=== PATIENT | female | born 1950 | race Caucasian/White ===

== ENCOUNTER 2025-04-25 21:21 | Emergency (ER) | payer OTHER ==
[~2025-04-25] VITALS: Ht 167.6 cm; Wt 78.8 kg
--- NOTE | 2025-04-25 21:49 | ED.PDOC ---
Daniela. trauma (HPI) HPI Comments Pt presents to the ER due to ground level fall. Pt reports she was working out in her yard and tripped and fell over a wooden beam. Pt states bracing fall with lft side of body. Pt complaint of lft hand, wrist, and lft knee pain. Pt noted to have abrasion to lft cheek. Pt denies head, neck, or back pain. CSM intact. Time Seen by MD: 21:39 Reviewed notes: Nurses Notes, Medications, Allergies Allergies: Coded Allergies: NO KNOWN ALLERGIES (Unverified , 04/25/25) Past Medical History PAST MEDICAL HISTORY: Denies Surgical History: Denies all surgeries [employer] History: No Pertinent [employer] History Family History Family History: Reviewed,noncontributory to illness Social History Smoker: Non-Smoker Alcohol: Denies ETOH Use Drugs: Denies Drug Use Constitutional: denies: chills, diaphoresis, fatigue, fever, malaise, sweats, weakness, others EENTM: denies: blurred vision, double vision, ear bleeding, ear discharge, ear drainage, ear pain, ear ringing, eye pain, eye redness, hearing loss, mouth pain, mouth swelling, nasal discharge, nose bleeding, nose congestion, nose pain, photophobia, tearing, throat pain, throat swelling, voice changes, others Respiratory: denies: cough, hemoptysis, orthopnea, SOB at rest, shortness of breath, SOB with excertion, stridor, wheezing, others Cardiovascular: denies: chest pain, dizzy spells, diaphoresis, Dyspnea on exertion, edema, irregular heart beat, left arm pain, lightheadedness, palpitations, PND, syncope, others Gastrointestinal: denies: abdomen distended, abdominal pain, blood streaked bowels, constipated, diarrhea, dysphagia, difficulty swallowing, hematemesis, melena, nausea, poor appetite, poor fluid intake, rectal bleeding, rectal pain, vomiting, others Genitourinary: denies: abnormal vagina bleeding, burning, dyspareunia, dysuria, flank pain, frequency, hematuria, incontinence, pain, , vagina discharge, urgency, others Neurological: denies: dizziness, fainting, headache, left sided numbness, left sided weakness, numbness, paresthesia, pre-existing deficit, right sided numbness, right sided weakness, seizure, speech problems, tingling, tremors, weakness, others Musculoskeletal: reports: joint pain, joint swelling; denies: back pain, gout, muscle pain, muscle stiffness, neck pain, others Integumetry: denies: bruises, change in color, change in hair/nails, dryness, laceration, lesions, lumps, rash, wounds, others Allergic/Immunocompromised: denies: Difficulty Healing, Frequent Infections, Hives, Itching, others Hematologic/Lymphatic: denies: anemia, blood clots, easy bleeding, easy bruising, swollen glands, others Physical Exam General Appearance: No Apparent Distress, Normal HEENT: Head (Superficial abrasion and edema under left eye left cheek no noted lacerations or crepitus no active bleeding), Pharynx Normal, TMs Normal Neck: Full Range of Motion, Non-Tender Respiratory: Lungs Clear, No Respiratory Distress, Normal Breath Sounds Cardiovascular: No Edema, No JVD, No Murmur, No Gallop, Normal Peripheral Pulses, Regular Rate/Rhythm Breast Exam: Deferred Gastrointestinal: No Organomegaly, Non Tender, No Pulsatile Mass, Normal Bowel Sounds, Soft Genitalia: Deferred Pelvic: Deferred Rectal: Deferred Extremities: Normal capillary refill, Normal inspection, Normal range of motion, Non-tender, No pedal edema Musculoskeletal : Location: Left Extremity Location: Finger 3 (Middle phalanx with moderate edema noted bony prominence no open lesions abrasions lacerations strength sensory motion intact cap refill less than 3 seconds), Wrist (Noted abrasion superficial left wrist posterior aspect strength sensory motion intact no noted lacerations no no bony prominence) Apperance: Normal Neurologic: Alert, No Motor Deficits, Normal Affect, Normal Mood, No Sensory Deficits Cerebellar Function: Normal Reflexes: Normal Skin: Dry, Normal Color, Warm Lymphatic: No Adenopathy Was a procedure done? Was a procedure done?: Yes Sedation Sedation?: No Informed consent obtained: Yes Reduction Indication: Dislocation Sedation: Consents obtained Intra-articular anesthetic chris: No Post-reduction x-ray show: Reduction, Good Alignment Informed consent obtained: Yes Risks/benefits/alt described: Yes (Left 3rd finger) UTO Consent Patient tolerated well. Cap refill less than 3 seconds septal reduction strength sensory motion intact push the x-ray shows good alignment Differential Diagnosis Multiple Trauma: Fractures, Abrasions, Contusion X-Ray, Labs, Meds, VS Vital Signs Date Time Temp Pulse Resp B/P (MAP) Pulse Ox O2 Delivery O2 Flow Rate FiO2 04/25/25 21:53 97.9 79 16 168/94 (118) 97 97.9 X-Ray, Labs, Meds, VS Comment See procedure note. Patient placed in left wrist splint velcro , arm sling, and finger splint postreduction x-ray shows good alignment. Advised to follow up with the PCP on Monday discussed rice. [id number] Tylenol or Motrin as needed for the pain pretty but nursing instructions. Place patient on ER return precautions patient indicates understanding and agrees with discharge plan of care. Time of 1ST Reevaluation: 21:49 Reevaluation 1ST: Unchanged Time of 2ND Reevaluation: 00:31 Reevaluation 2ND: Improved Patient Education/Counseling: Diagnosis, Treatment, Prognosis, Need For Follow Up Family Education/Counseling: No Family Present Departure 1 Departure Time of Disposition: 00:31 Impression: Primary Impression: Avulsion fracture of left wrist Additional Impression: Dislocation, finger, interphalangeal joint Qualified Codes: S63.279A - Dislocation of unspecified interphalangeal joint of unspecified finger, initial encounter Disposition: HOME / SELF CARE / HOMELESS Condition: Stable Discharged With: Self Critical Care Note Critical Care Time?: No Stability Stability form required: RITA Patel April 25, 2025 21:49
[2025-04-25 21:53] VITALS: BP 168/94; PULSE 79; RESP 16; TEMP 97.9; O2SAT 97
--- NOTE | 2025-04-25 22:37 | DVH ---
CLINICAL INDICATION: 3rd digit injury and swelling TECHNIQUE: 3 radiographic views of the left and were obtained. Comparison: None FINDINGS/IMPRESSION: Dorsal dislocation of the left 3rd finger at the proximal interphalangeal joint The visualized joint space is well maintained. The alignment is anatomical. There is no radiopaque foreign body.
--- NOTE | 2025-04-25 22:38 | DVH ---
CLINICAL INDICATION: s/p fall knee pain and swelling TECHNIQUE: 3 radiographic views of the left knee were obtained. Comparison: None FINDINGS/IMPRESSION: There is no evidence of acute fracture or dislocation. The visualized joint space is well maintained. The alignment is anatomical. There is no radiopaque foreign body.
--- NOTE | 2025-04-25 22:40 | DVH ---
CLINICAL INDICATION: s/p fall wrist pain and swelling TECHNIQUE: 3 radiographic views of the left wrist were obtained. Comparison: None FINDINGS/IMPRESSION: There is no evidence of acute fracture or dislocation. Small flake of calcification off the dorsum of the left wrist may represent a bony avulsion fracture most likely from the triquetrum. The visualized joint space is well maintained. The alignment is anatomical. There is no radiopaque foreign body.
--- NOTE | 2025-04-25 22:46 | DVH ---
HISTORY: s/p fall left orbit facial trauma TECHNIQUE: Nonenhanced axial images through the facial bones with coronal and sagittal MPR. Radiation Dose Information: CT Dose: CTDI volume is mGy. Dose-length product is mGy*cm COMPARISON: None FINDINGS: Soft tissues: Unremarkable Mandible: Unremarkable Maxilla: Unremarkable Zygomatic arches: Unremarkable Nasal bone: Unremarkable Orbits: Unremarkable Paranasal Sinuses / Mastoid air cells / Middle ear cavities: Clear IMPRESSION: No facial fracture. Radiation optimization: All CT scans at this facility use at least one of these dose optimization quintin hniques: automated exposure control mA and/or kV adjustment per patient size (includes targeted exam s where dose is matched to clinical indication) or iterative reconstruction.
--- NOTE | 2025-04-26 04:13 | DVH ---
CLINICAL INFORMATION: 74 years old, Female; THIRD DIGIT POSTREDUCTION. TECHNIQUE: 3 views of the left hand were obtained. COMPARISON: XY L HAND 3V XRAY on DOS: 04/25/25 IMPRESSION: There has been interval reduction of previously dislocated 3rd proximal phalangeal joint. Small obliq ue fracture relatively nondisplaced of the ventral mid phalangeal base is present. Triquetral avulsion fracture of the dorsal wrist is redemonstrated.
== END 2025-04-26 03:13 | disposition home or self-care (01) ==
LOC: ER 21:21
DX: S63.283A Dislocation of proximal interphalangeal joint of left middle finger, initial encounter (principal); S00.81XA Abrasion of other part of head, initial encounter; W18.09XA Striking against other object with subsequent fall, initial encounter; Y93.89 Activity, other specified; Y92.096 Garden or yard of other non-institutional residence as the place of occurrence of the external cause; Y99.8 Other external cause status
CPT/HCPCS: 26770; 29125; 70486; 73110; 73130; 73562